=== PATIENT | male | born 1950 | race Caucasian/White ===

== ENCOUNTER 2019-05-25 21:21 | Emergency (ER) | payer MEDICARE, SELFPAY ==
[2019-05-25 21:45] VITALS: BP 189/93; PULSE 73; RESP 18; TEMP 37.1; O2SAT 100; BMI 28.7
--- NOTE | 2019-05-25 21:53 | ED_ITS ---
HPI - Abdominal Pain General Chief Complaint: Abdominal Pain Stated Complaint: abdominal pain x 10 days Time Seen by Provider: 05/25/19 21:44 Source: patient Mode of arrival: ambulatory Limitations: no limitations History of Present Illness HPI narrative: 69-year-old male here for evaluation of lower abdomen pain. He states that it has been going on for the past 10 days. He states that he is periods of time when the pain is worse than others however he feels like that for the past 10 days and has had constant pain. No urinary symptoms. During the past 10 days he did have a episode of constipation but that seems to have improved. No urinary symptoms. Has not tried anything for symptoms prior to her Related Data Allergies Allergy/AdvReac Type Severity Reaction Status Date / Time terbinafine Allergy Rash Verified 05/25/19 21:56 Review of Systems Constitutional Denies fever(s) and Denies headache(s) ENT Ears, Nose, Mouth, and Throat: Denies headache(s) Cardiovascular Denies chest pain and Denies dyspnea Respiratory Denies dyspnea Gastrointestinal Gastrointestinal: Reports abdominal pain, Denies change in stool character, D enies nausea and Denies vomiting Genitourinary Denies hematuria, Denies genital pain, Denies dysuria, Denies flank pain and Denies urinary urgency Musculoskeletal Denies myalgias and Denies arthralgias Integumentary/Breasts Denies rash Neurologic Denies confusion and Denies headache(s) Psychiatric Denies confusion Hematologic/Lymphatic Denies easy bleeding and Denies easy bruising [facility] Medical History (Updated 05/26/19 @ 02:53 by Deshawn Julio DO) Hypertension (Acute) Kidney stones (Acute) Testicular cancer (Acute) Surgical History History of prostatectomy (Acute) Social History marital status: lives independently: Yes Social History marital status: lives independently: Yes Exam Initial Vital Signs Initial Vital Signs: Vital Signs Temperature 98.7 F 05/25/19 21:45 Pulse Rate 73 05/25/19 21:45 Respiratory Rate 18 05/25/19 21:45 Blood Pressure 189/93 H 05/25/19 21:45 Pulse Oximetry 100 05/25/19 21:45 Const General: cooperative, healthy appearing, comfortable, well developed, well groomed and No acute distress Orientation: alert, awake and oriented x3 HENMT Head: normal to inspection and normocephalic Resp Effort & Inspection: normal respiratory effort Auscultation: clear to auscultation bilaterally Cardio Rate: regular rate Rhythm: regular rhythm GI Inspection: non-distended Palpation: soft, No firm and tender (Lower abdomen/suprapubic) External: circumcised Penis: normal penis Scrotum: scrotum normal Testes: normal, testicular lie normal, no testicular mass, no testicular swelling and no testicular tenderness Back/Spine/Pelvis Back: No CVA tenderness Skin Lesions: no lesions Rashes: no rashes Neuro General: alert, awake and oriented x3 Cognition: normal cognition Speech: speech normal Extrem General: normal to inspection and capillary refill normal Psych Appearance: grossly normal and well kempt Scores GCS Karen coma scale eye opening: Spontaneous [place] coma scale verbal response: Orientated [place] coma scale motor response: Obey commands Karen coma scale total score: 15 Course Orders Ordered: ED Orders 05/25/19 22:00 Urine Microscopic Stat 05/25/19 22:02 CT abdomen pelvis w con Stat 05/25/19 22:08 Complete Blood Count AUTO DIFF Stat Comprehensive Metabolic Panel Stat Lipase Stat Discontinued Medications Sodium Chloride (Normal Saline 0.9%) 1,000 mls @ 1,000 mls/hr IV BOLUS ONE Stop: 05/25/19 23:00 Last Infusion: 05/25/19 23:55 Dose: 0 mls/hr Admin: 05/25/19 22:36 Dose: 1,000 mls/hr Vital Signs - 8 hr 05/25/19 21:45 05/25/19 23:55 Temperature 98.7 F Pulse Rate 73 69 Respiratory Rate 18 Blood Pressure 189/93 H 177/89 H Pulse Oximetry 100 95 MDM - Abdominal Pain Lab Data Attestation: I reviewed the patient's lab results. Result diagrams: 05/25/19 22:08 05/25/19 22:08 Lab Results 05/25/19 05/25/19 05/25/19 Range/Units 22:00 22:08 22:08 WBC 6.3 (4.5-11.0) X10^3/uL RBC 4.80 (4.5-5.9) X10^6/uL Hgb 14.5 (13.5-17.5) g/dL Hct 42.3 (41-53) % MCV 88.0 (80-100) fL MCH 30.1 (26-34) PG MCHC 34.2 (30-36) % RDW 13.4 (11.6-14.8) % Plt Count 227 (150-400) X10^3/uL Neut % (Auto) 62.2 (50-75) % Lymph % (Auto) 21.2 L (25-40) % [place] % (Auto) 10.6 (3-14) % Eos % (Auto) 5.4 H (2-4) % Baso % (Auto) 0.6 (0-2) % Neut # (Auto) 3900 (7000-8539) /uL Lymph # (Auto) 1300 (5069-9195) /uL [place] # (Auto) 700 (0-900) /uL Eos # (Auto) 300 (0-450) /uL Baso # (Auto) 0 (0-100) /uL Sodium 140 (137-145) mmol/L Potassium 4.2 (3.4-5.1) mmol/L Chloride 105 (98-107) mmol/L Carbon Dioxide 28 (22-32) mmol/L BUN 18 (9-20) mg/dL Creatinine 0.90 (0.66-1.25) mg/dL Estimated GFR > 60.0 (>60) mL/min BUN/Creatinine Ratio 20.0 (6-22) Glucose 126 H (80-110) mg/dL Calcium 10.0 (8.4-10.2) mg/dL Total Bilirubin 0.6 (0.2-1.3) mg/dL AST 45 (17-59) IU/L ALT 52 (21-72) IU/L Alkaline Phosphatase 65 (38-126) U/L Total Protein 7.3 (6.3-8.2) g/dL Albumin 4.3 (3.5-5.0) g/dL Globulin 3.0 (1.7-4.1) g/dL Albumin/Globulin Ratio 1.4 (1.0-2.8) Lipase 105 (23-300) U/L Urine RBC 10-30/hpf H (0-5/HPF) Urine WBC None seen (0-5/HPF) Ur Squamous Epith Cells 0-1 /hpf (0-5/HPF) Urine Bacteria None seen (None) Ur Culture Indicated? Cult not indicated Point of care testing: Urine Dip Bedside Urine Glucose Negative Bedside Urine Bilirubin - Negative Bedside Urine Ketone +/- 5 Urine Specific [place] 1.030 Bedside Urine Occult Blood +++ Bedside Urine pH 5.5 Bedside Urine Protein - Negative Bedside Urine Urobilinogen - Negative Bedside Urine Nitrite - Negative Bedside Urine Leukocytes - Negative Esterase Imaging Data CT scan - abdomen: Radiologist's impression: Read by real Radiology 3 mm left urinary bladder stone may be within the intramural ureter, or recently passed. There is moderate left hydronephrosis. Li mesentery with small m esenteric lymph nodes. This is nonspecific. Small umbilical hernia contains fat with minor fat stranding. This could be locally inflamed. No fluid collections. Subcentimeter right lower lobe pulmonary nodules. Consider nonemergent chest CT for complete evaluation MDM Narrative Medical decision making narrative: Patient does have a 3 mm stone in his bladder with left-sided hydro. He also has blood in his urine. His symptoms very well could be related to this. I discussed this with him and after further discussion he did state that over the past several days at times he thought that maybe he was having a kidney stone. Will hold on further workup for now. No signs of infection. No other signs of surgical pathology. We did discuss his pulmonary nodules. Informed him he needed to contact his primary doctor regarding this for follow-up patient expressed understanding and agreement with plan. Discharge Plan Departure Patient Disposition: Home Clinical Impression: Bladder stone, Multiple lung nodules on CT Discharge Date/Time: 05/25/19 23:56 Interventions: ED Discharge Assessment Last Done: 05/25/19 23:55 Instructions: DI for Kidney Stones Activity Restrictions/Additional Instructions: There was a 3 mm stone seen in the urinary bladder which could very well be the cause of all of your symptoms. They were also incidental findings of 2 lung nodules lower portion of your right lung. Please contact your primary provider regarding this for a follow-up and a dedicated CT scan of your chest. Return to the emergency department for any new or worsening symptoms.
--- NOTE | 2019-05-25 22:02 | DI.CT.S_ITS ---
PROCEDURE: CT ABDOMEN PELVIS W CON INDICATIONS: Midline lower abdomen pain TECHNIQUE: After the administration of intravenous contrast, 5 mm thick sections acquired from the diaphragm to the symphysis. 5 mm coronal and sagittal reformats were acquired. For radiation dose reduction, the following was used: automated exposure control, adjustment of mA and/or kV according to patient size. COMPARISON: None. FINDINGS: Image quality: Excellent. ABDOMEN: Lung bases: A 5 mm pulmonary nodules present at the posterior right lung base. 3 mm pulmonary nodules are present more superiorly within the right lower lobe (series 3 images one and 2). A 4 mm pulmonary nodule is present within the right middle lobe (series 3, image 8). The lung bases are otherwise clear. Solid organs: Liver is normal in size and enhancement. Gallbladder is unremarkable. Biliary system is non dilated. Pancreas enhances normally. Spleen is normal in size and enhancement. No adrenal nodules. Kidneys demonstrate normal size and. No right hydronephrosis, hydroureter, or ureterolithiasis. There is mild left hydronephrosis and hydroureter. A 4 mm calculus is present at the left ureterovesicular junction (series 2, image 91). Peritoneum and bowel: Bowel loops demonstrate normal wall thickness and caliber. The appendix is thin walled and gas filled. No free fluid or air. Nodes and vessels: There is a subtle mesenteric root haziness with shotty subcentimeter mesenteric lymph nodes. However, there is no retroperitoneal or mesenteric adenopathy by size criteria. Aorta and inferior vena cava are normal in size. Mild atheromatous calcifications are present throughout the abdominal aorta. Miscellaneous: There is a small fat-containing umbilical hernia. PELVIS: Genitourinary: Bladder is decompressed. Miscellaneous: No inguinal adenopathy. There is a small fat-containing left inguinal hernia. Bones: No suspicious bony lesions. No vertebral body compression fractures. IMPRESSION: 1. 4 mm calculus at the left UVJ with mild left hydroureteronephrosis suggesting partial obstruction. 2. No other acute intra-abdominal findings. Normal appendix. 3. Diverticulosis. No acute diverticulitis. 4. Mesenteric root haziness with subcentimeter lymph nodes. This is a nonspecific finding but can be associated with hematologic neoplasm. 5. 5 mm right pulmonary nodule. 12 month followup recommended. These findings are concordant with the overnight interpretation. Dictated by: Steffany Andrade M.D. on 05/26/2019 at 7:34 Approved by: Steffany Andrade M.D. on 05/26/2019 at 7:42
[2019-05-25 22:16] LABS: Bacteria Urine None Seen; WBC Urine None Seen (0-5/HPF)
[2019-05-25 22:19] LABS: Add Manual Diff / Slide Review NO; Basophils Absolute Auto 0 /uL (0-100); Basophils Percent Auto 0.6 % (0-2); Eosinophils Absolute Auto 300 /uL (0-450); Eosinophils Percent Auto 5.4 % (2-4); Hematocrit 42.3 % (41-53); Hemoglobin 14.5 g/dL (13.5-17.5); Lymphocytes Absolute Auto 1300 /uL (1100-4500); Lymphocytes Percent Auto 21.2 % (25-40); Mean Corpuscular HGB Conc 34.2 % (30-36); Mean Corpuscular Hemoglobin 30.1 PG (26-34); Monocytes Absolute Auto 700 /uL (0-900); Monocytes Percent Auto 10.6 % (3-14); Neutrophils Absolute Auto 3900 /uL (1500-7000); Neutrophils Percent Auto 62.2 % (50-75); Platelet Count 227 X10^3/uL (150-400); Red Cell Distribution Width 13.4 % (11.6-14.8); White Blood Cell Count 6.3 X10^3/uL (4.5-11.0)
[2019-05-25 22:27] LABS: Alanine Aminotransferase 52 IU/L (21-72); Albumin 4.3 g/dL (3.5-5.0); Albumin Globulin Ratio 1.4 (1.0-2.8); Alkaline Phosphatase 65 U/L (38-126); Aspartate Aminotransferase 45 IU/L (17-59); Bilirubin Total 0.6 mg/dL (0.2-1.3); Blood Urea Nitrogen 18 mg/dL (9-20); Carbon Dioxide 28 mmol/L (22-32); Chloride 105 mmol/L (98-107); Estimated Glomerular Filt Rate > 60.0 mL/min (>60); Glucose 126 mg/dL (80-110); HEMOLYSIS < 15 (0-50); Lipase 105 U/L (23-300); Potassium 4.2 mmol/L (3.4-5.1); Sodium 140 mmol/L (137-145); Total Protein 7.3 g/dL (6.3-8.2)
[2019-05-25 22:29] LABS: Culture Indicated Urine Cult Not Indicated; RBC Urine 10-30/HPF (0-5/HPF); Squamous Epithelial Cell Urine 0-1 /HPF (0-5/HPF)
[2019-05-25] MEDS: SODIUM CHLORIDE 0.9% 1,000 ML 1000 ML IV (22:36)
[2019-05-25 23:55] VITALS: BP 177/89; PULSE 69; O2SAT 95
== END 2019-05-25 23:56 | disposition home or self-care (01) ==
PROVIDERS: Emergency Provider Emergency Medicine
DX: N21.0 Calculus in bladder (principal); R91.8 Other nonspecific abnormal finding of lung field
CPT/HCPCS: 36591; 74177; 80053; 81003; 81015; 83690; 85025; 96360; 99283; 99284; Q9967